=== PATIENT | female | born 1995 | race Caucasian/White ===

== ENCOUNTER → 2019-03-29 | Outpatient (CLI) | payer BC | END | disposition home or self-care (01) | LOC: LAB 12:24 | PROVIDERS: ATTEND Internal Medicine | DX: N39.0 Urinary tract infection, site not specified (principal); E03.9 Hypothyroidism, unspecified; S09.8XXA Other specified injuries of head, initial encounter; X58.XXXA Exposure to other specified factors, initial encounter | CPT/HCPCS: 70140; 70450; 80053; 81001; 84436; 84443; 85025 ==

== ENCOUNTER 2019-04-18 08:00 | Emergency (ER) | payer BC ==
[~2019-04-18] VITALS: Ht 165.1 cm; Wt 50.6 kg
[~2019-04-18 08:00] MED LIST: ELIM TOP; MUPI22OI2 TOP
[2019-04-18 08:03] VITALS: BP 125/60; PULSE 114; RESP 24; Ht 165.1 cm; Wt 50.6 kg
--- NOTE | 2019-04-18 08:34 | ERD ---
ER Documentation Chief Complaint Chief Complaint possible insect bites started 2 weeks ago HPI 24-year-old female presenting with insect bites x2 weeks. Patient states that they were itching in the urine extremities and stomach. She take cleaning her apartment but is unsure what is causing her bites. Denies other medical problems. NKDA. Surgical history denies. Social history smokes marijuana and cigarettes daily. Denies other drug use. ROS All systems reviewed and are negative except as per history of present illness. Medications Home Meds Active Scripts Permethrin* (Elimite*) 5% Cr, 1 APPLIC TOP ONCE, #1 TUB Prov:JESUSITA SALCEDO PA-C 04/18/19 Mupirocin* (Bactroban*) 2% -22 Gram Oint...g., 1 APPLIC TOP BID for 7 Days, EA Prov:JESUSITA SALCEDO PA-C 04/18/19 FmHx Family History: No diabetes, No coronary disease, No other Physical Exam Vitals Vital Signs Date Temp Pulse Resp B/P (MAP) Pulse Ox O2 O2 Flow FiO2 Time Delivery Rate 04/18/19 97.8 114 24 125/60 98 08:03 (81) Physical Exam GENERAL: The patient is well-appearing, well-nourished, in no acute distress CHEST: Clear to auscultation bilaterally. There are no rales, wheezes or rhonchi. HEART: Regular rate and rhythm. No murmurs, clicks, rubs or gallops. N EXTREMITIES: Equal pulses bilaterally. There is no peripheral clubbing, cyanosis or edema. No focal swelling or erythema. Full range of motion. NEUROLOGIC: Alert and oriented. Cranial nerves II through XII intact. Motor strength in all 4 extremities with 5 out of 5 strength. Sensation grossly intact. Normal speech and gait. SKIN: Small pinpoint lesions noted on abdomen arms and extremities. No vesicles or pustules. A few of the lesions have been scratched and are having a few yellow crusting areas. Purulence or fluctuance. Procedures/MDM MDM: 24-year-old female presenting with bug bites. Patient may have findings of scabies I will treat given patient has tried other treatments with no resolution. I have low suspicion for life-threatening rash. Patient will also be treated for early impetigo given there is some yellow crusting areas noted of the wound sites. Patient is discharged with strict ER precautions. All questions answered at discharge Departure Diagnosis: Primary Impression: Insect bite Condition: Stable Patient Instructions: Insect Bite Additional Instructions: FOLLOW UP WITH YOUR PRIMARY CARE PHYSICIAN TOMORROW.Return to this facility if you are not improving as expected. JESUSITA SALCEDO PA-C Apr 18, 2019 08:34
== END 2019-04-18 08:49 | disposition home or self-care (01) ==
LOC: FTE 08:00
DX: S30.861A Insect bite (nonvenomous) of abdominal wall, initial encounter (principal); W57.XXXA Bitten or stung by nonvenomous insect and other nonvenomous arthropods, initial encounter; Y92.9 Unspecified place or not applicable
CPT/HCPCS: 99283